=== PATIENT | female | born 1970 | race Caucasian/White ===

== ENCOUNTER → 2016-10-14 15:52 | Outpatient (CLI) | payer BC ==
[2016-04-21 06:44] VITALS: BMI 23.6
[~2016-10-14 15:52] MED LIST: DUEXIS 800-26.1 EACH PO; HYDROCODONE-APA1 TAB PO; VALIUM5 MG PO
== END | disposition home or self-care (01) ==
LOC: D.MAMMO 08:30
DX: N63 Unspecified lump in breast (principal)

== ENCOUNTER 2016-10-19 12:02 | Emergency (ER) | payer BC ==
[2016-04-21 06:44] VITALS: BMI 23.6
== END 2016-10-19 14:35 | disposition home or self-care (01) ==
LOC: D.ER 12:02
DX: S16.1XXA Strain of muscle, fascia and tendon at neck level, initial encounter (principal); V43.52XA Car driver injured in collision with other type car in traffic accident, initial encounter; Y93.89 Activity, other specified; Y92.410 Unspecified street and highway as the place of occurrence of the external cause; M50.30 Other cervical disc degeneration, unspecified cervical region; F17.200 Nicotine dependence, unspecified, uncomplicated

== ENCOUNTER 2016-12-30 09:53 | Outpatient (CLI) | payer BC ==
[2016-04-21 06:44] VITALS: BMI 23.6
--- NOTE | ~2016-12-30 | HEMODYNAMI ---
PATIENT:MACHO MELENDEZ MEDICAL RECORD: [id number] : 68 LOCATION:[facility] ADMISSION DATE: 12/30/16 Generatedon:12/30/201614:14 Patient name: MACHO MELENDEZ Patient #: [id number] SSN: : 1970 Date of study: 12/30/2016 Page: Of Hemodynamic Procedure Report Patient Data Patient Demographics Procedure consent was obtained First Name: MACHO Gender: Female Last Name: NORA : 1970 Middle Initial: ENMANUEL Age: 46 year(s) Patient #: [id number] Race: Additional ID: [id number] Contact details Address: [address] [place] [address] State: [place] City: [facility] Zip code: [address] Past Medical History Allergies Allergen Reaction Date Comments Reported Penicillins 12/30/2016 Sulfa drugs 12/30/2016 Admission Admission Data Admission Date: 12/30/2016 Admission Time: 9:53 Admit Source: Emergency department Height (in.): 25.59 BSA: 0.86 (m2) Height (cm.): 65 BMI: 150.3 (kg/m2) Weight (lbs.): 140 Weight (kg.): 63.5 Lab Results Lab Result Date: 12/30/2016 Lab Result Time: 0:00 Biochemistry Name Units Result Min Max BUN mg/dl 14 --(--*-)-- 7 18 Creatinine mg/dl 0.8 --(-*--)-- 0.6 1.3 Troponin I ng/ml 0.017 --(-*--)-- 0 0.06 Troponin l ng/ml 0 --(*---)-- 0 0.06 CBC Name Units Result Min Max Hemoglobin g/dl 13.1 -*(----)-- 13.5 17.5 Procedure Procedure Types Cath Procedure Diagnostic Procedure LHC LHC w/Coronaries Miscellaneous Procedures Procedure Description Procedure Date Procedure Date: 12/30/2016 Procedure Start Time: 14:01 Procedure End Time: 14:13 Procedure Staff Name Function Juarez Deng MD Performing Physician Jessica Gutierrez RT Scrub Franca Franklin RN Nurse Constantino Collado RT Monitor Procedure Data Cath Procedure Fluoroscopy Diagnostic fluoroscopy Total fluoroscopy Time: 1.4 time: 1.4 min min Diagnostic fluoroscopy Total fluoroscopy dose: 208 dose: 208 mGy mGy Contrast Material Contrast Material Type Amount (ml) Isovue 300 44 Entry Location Entry Primary Successful Side Size Upsize Upsize Entry Closure Chowdary ccessful Closure Location (Fr) 1 (Fr) 2 (Fr) Remarks Device Remarks Radial Right 6 Fr Mechanical artery Short Compression Estimated blood loss: 10 ml Diagnostic catheters Device Type Used For End Catheter Placement Diagnostic Terumo 5Fr Procedure Philomath 110cm catheter Procedure Medications Medication Administration Route Dosage Oxygen NC 2 l/min Lidocaine 2% added to field 20 Heparin Flush Bag added to field 2 bags (1000units/500ml NS) 0.9% NaCl I.V. 100 ml/hr Radial Cocktail added to field 1 syringe (Verapomil 2mg/Nitro 400mcg/Heparin 1500units) Versed I.V. 2 mg Fentanyl I.V. 50 mcg Versed I.V. 1 mg Fentanyl I.V. 50 mcg Versed I.V. 2 mg Fentanyl I.V. 50 mcg Radial Cocktail I.A. 1 syringe (Verapomil 2mg/Nitro 400mcg/Heparin 1500units) Versed I.V. 1 mg Fentanyl I.V. 50 mcg Versed I.V. 1 mg Hemodynamics Rest BSA: 0.86 (m2) HGB: 13.1 (g/dl) O2 Consumption: Estimated: 82.67 (ml/min) O2 Con sumption indexed: Estimated:96.13 (ml/min/m) Heart Rate: 63 (bpm) Pressure Samples Time Site Value (mmHg) Purpose Heart Use Rate(bpm) 14:03 LV 339/157,239 Snapshot 69 Snapshots Pre Cath Intra NCS Post Cath Vital Signs Time Heart Resp SPO2 etCO2 [id number] NIBP Rhythm Pain Sedation Rate (ipm) (%) (mmHg) (mmHg) (mmHg) Status Level (bpm) 13:34:14 59 12 100 0 0 123/73(91) NSR 0 (11) 10(A) , No pain 13:38:24 62 15 100 0 0 123/75(92) NSR 0 (11) 10(A) , No pain 13:42:36 62 10 99 0 0 116/70(86) NSR 0 (11) 10(A) , No pain 13:46:46 68 16 99 0 0 116/64(87) NSR 0 (11) 10(A) , No pain 13:50:58 66 18 97 0 0 114/59(83) NSR 0 (11) 10(A) , No pain 13:55:06 61 19 97 0 0 115/68(91) NSR 0 (11) 10(A) , No pain 13:59:16 60 19 97 0 0 116/63(88) NSR 0 (11) 9(A) , No pain 14:03:19 63 13 100 0 0 118/81(99) NSR 0 (11) 9(A) , No pain 14:07:33 70 13 97 0 0 97/53(72) NSR 0 (11) 9(A) , No pain 14:11:41 62 16 94 0 0 94/50(68) NSR 0 (11) 10(A) , No pain 14:13:07 63 8 94 0 0 96/50(68) NSR 0 (11) 10(A) , No pain Medications Time Medication Route Dose Verified Delivered Reason Notes E ffectiveness by by 13:33:27 Oxygen NC 2 l/min Franca Franca used for Noemi Noemi canine service teacher RN 13:33:38 Lidocaine 2% added 20ml Franca Franca used for to vial Noemi Noemi procedure field RN RN 13:33:48 Heparin Flush added 2 bags Franca Franca used for Bag to Noemi Noemi procedure (1000units/500ml field RN RN NS) 13:34:00 0.9% NaCl I.V. 100ml/hr Franca Franca used for Noemi Noemi canine service teacher RN 13:42:25 Radial Cocktail added 1 Franca Franca used for (Verapomil to syringe Noemi Noemi procedure 2mg/Nitro field RN RN 400mcg/Heparin 1500units) 13:54:20 Versed I.V. 2 mg Franca Franca for Noemi Noemi sedation RN RN 13:54:29 Fentanyl I.V. 50 mcg Franca Franca for Noemi Noemi sedation RN RN 13:57:14 Versed I.V. 1 mg Franca Franca for Noemi Noemi sedation RN RN 13:57:18 Fentanyl I.V. 50 mcg Franca Franca for Noemi Noemi sedation RN RN 14:01:45 Versed I.V. 2 mg Franca Franca for Noemi Noemi sedation RN RN 14:01:49 Fentanyl I.V. 50 mcg Franca Franca for Noemi Noemi sedation RN RN 14:02:47 Radial Cocktail I.A. 1 Juarez Pizarro used for (Verapomil syringe Sowmya Deng MD procedure 2mg/Nitro 400mcg/Heparin 1500units) 14:04:31 Versed I.V. 1 mg Juarez Pizarro for Sowmya Deng MD sedation 14:04:36 Fentanyl I.V. 50 mcg Juarez Pizarro for Sowmya Deng MD sedation 14:07:28 Versed I.V. 1 mg Franca Franca for Noemi Noemi sedation RN sales representative metals Log Time Note 13:02:35 Procedure type changed to Cath procedure, Diagnostic procedure, LHC, LHC w/Coronaries, Miscellaneous Procedures 13:02:59 Diagnostic Cath Status : Elective 13:03:10 Jessica Gutierrez RT(R) sent for patient. Start room use. 13:03:12 Time tracking: Regular hours 13:03:17 Plan of Care:Hemodynamics will remain stable., Cardiac rhythm will remain stable., Comfort level will be maintained., Respiratory function will remain adequate., Patient/ family verbilizes understanding of procedure., Procedure tolerated without complication., Recovers from procedure without complications.. 13:33:11 Vital chart was started 13:33:27 Oxygen 2 l/min NC was administered by Franca Franklin RN; used for procedure; 13:33:38 Lidocaine 2% 20ml vial added to field was administered by Franca Franklin RN; used for procedure; 13:33:48 Heparin Flush Bag (1000units/500ml NS) 2 bags added to field was administered by Franca Franklin RN; used for procedure; 13:34:00 0.9% NaCl 100ml/hr I.V. was administered by Franca Franklin RN; used for procedure; 13:37:26 Patient received from ED to CCL 1 Alert and oriented. Tansferred to table in Supine position. 13:37:28 Warm blankets applied, and prabha hugger turned on for patient comfort. 13:37:28 Correct patient and procedure confirmed by team. 13:37:29 ECG and BP/O2 sat monitors applied to patient. 13:37:30 Baseline sample Acquired. 13:37:46 Baseline sample Acquired. 13:37:49 Rhythm: sinus rhythm 13:37:58 H&P Date Dictated: 12/30/2016 ER History on chart.. 13:39:44 Full Disclosure recording started 13:39:48 Pre-procedure instructions explained to patient. 13:39:49 Pre-op teaching completed and patient verbalized understanding. 13:39:52 Family in waiting room. 13:40:05 Patient NPO since Breakfast. 13:40:19 Patient allergic to Penicillins 13:40:24 Patient allergic to Sulfa drugs 13:40:36 Is the patient allergic to Iodine/contrast media? No. 13:40:42 Is patient on blood thinner?No 13:40:44 Patient diabetic? No. 13:42:25 Radial Cocktail (Verapomil 2mg/Nitro 400mcg/Heparin 1500units) 1 syringe added to field was administered by Franca Franklin RN; used for procedure; 13:42:32 ----Pre-sedation anethsthesia assessment.---- 13:42:36 Previous problem with sedation/anesthesia? No ? 13:42:39 Snore? No 13:42:40 Sleep apnea? No 13:42:42 Deviated septum? No 13:42:42 Opens mouth fully? Yes 13:42:44 Sticks out tongue? Yes 13:42:48 Airway obstruction? No ? 13:42:53 Dentures? No ? 13:42:57 Pre procedure: right dorsailis pedis pulse 2+ Normal; easily identifiable; not easily obliterated 13:43:01 Modified Lester's test Ulnar < 7 seconds 13:43:14 IV patent on arrival in left antecubital with 0.9% NaCl at [facility]. 13:46:09 Lab Result : BUN 14 mg/dl 13:46:09 Lab Result : Troponin l 0 ng/ml 13:46:09 Lab Result : Creatinine 0.8 mg/dl 13:46:09 Lab Result : Troponin T 0.017 ng/ml 13:46:09 Lab Result : Hemoglobin 13.1 g/dl 13:46:14 Lab results completed and on chart. 13:46:20 Right Radial & Right Groin area was prepped with chlora-prep and draped in sterile fashion 13:46:21 Alarms reviewed by R. N. 13:46:22 Sharps counted by scrub and verified by R.N. 13:46:28 Admit Source: Emergency department 13:46:40 Patient Height : 25.59 cm 13:46:54 Patient Weight : 140 kg 13:47:00 Informed consent obtained and on chart 13:51:00 HCG/Urine : pending 13:53:39 Physician arrived 13:53:40 --------ALL STOP TIME OUT------ 13:53:42 Final Timeout: patient, procedure, and site verified with staff and physician. All members of the team are in agreement. 13:53:52 Right Radial & Right Groin site verified by team. 13:53:56 Physical assessment completed. ASA score P 2 - A patient with mild systemic disease as per Juarez Deng MD. 13:54:01 Sedation plan: IV Moderate Sedation Versed, Fentanyl 13:54:20 Versed 2 mg I.V. was administered by Franca Franklin RN; for sedation; 13:54:29 Fentanyl 50 mcg I.V. was administered by Franca Franklin RN; for sedation; 13:55:49 Use device set Radial Dx 13:55:51 Acist Syringe opened to sterile field. 13:55:52 Medline Cath Pack opened to sterile field. 13:55:53 Bag Decanter opened to sterile field. 13:55:53 Terumo 6Fr Slender Glidesheath opened to sterile field. 13:55:54 St Sanya 260cm J .035 wire opened to sterile field. 13:55:55 Acist Hand Control opened to sterile field. 13:55:55 Acist Manifold opened to sterile field. 13:55:56 Tegaderm 4 x 4 opened to sterile field. 13:55:57 MBrace Wrist Support opened to sterile field. 13:56:38 HCG/Urine : completed and on chart, negative 13:57:14 Versed 1 mg I.V. was administered by Franca Franklin RN; for sedation; 13:57:18 Fentanyl 50 mcg I.V. was administered by Franca Franklin RN; for sedation; 14:00:26 Procedure started. 14:01:03 Local anesthetic to right radial artery with Lidocaine 2% by Juarez Deng MD.INITIAL ACCESS ONLY 14:01:45 Versed 2 mg I.V. was administered by Franca Franklin RN; for sedation; 14::49 Fentanyl 50 mcg I.V. was administered by Franca Franklin RN; for sedation; 14:: A 6 Fr Short sheath was inserted into the Right Radial artery 14:02:42 A Diagnostic aCommerceumo 5Fr Philomath 110cm catheter was advanced over the wire and used for Procedure. 14:02:47 Radial Cocktail (Verapomil 2mg/Nitro 400mcg/Heparin 1500units) 1 syringe I.A. was administered by Juarez Deng MD; used for procedure; 14:03:43 Zero performed for pressure channel P1 14:04:01 LV hemodynamics recorded. 14:04:03 LV gram done using SALAS 14:04:10 EF : 60 % 14:04:20 LCA angiography performed. 14:04:31 Versed 1 mg I.V. was administered by Juarez Deng MD; for sedation; 14:04:36 Fentanyl 50 mcg I.V. was administered by Juarez Deng MD; for sedation; 14:06:01 RCA angiography performed. 14:06:07 Catheter removed. 14:06:47 Terumo TR Band Standard opened to sterile field. 14:07:16 Sheath removed intact; hemostasis achieved with Mechanical Compression to the Right Radial artery. 14:07:26 Procedure ended.(Physican Out) 14:07:28 Versed 1 mg I.V. was administered by Franca Franklin RN; for sedation; 14::38 Fluoroscopy time 01.40 minutes. 14::44 Fluoroscopy dose: 208 mGy 14::44 Flurop Dose total: 208 14:07:58 Contrast amount:Isovue 300 44ml. 14:08:00 Sharps counted by scrub and verified by R.N. 14:10:18 TR band inflated with 10cc of air. 14:10:20 Insertion/operative site no bleeding no hematoma. 14:10:29 Post right radial artery:stable 14:10:31 Post Procedure Pulses reassessed and unchanged 14:10:35 Post-procedure physical assessment completed. ASA score P 2 - A patient with mild systemic disease as per Juarez Deng MD. 14:10:40 Post procedure rhythm: sinus rhythm 14:10:44 Estimated blood loss: 10 ml 14:10:46 Post procedure instruction explained to patient.Patient verbalizes understanding. 14:10:49 Patient needs reinforcement of post procedure teaching. 14:10:51 Procedure and supply charges have been captured, reviewed, submitted and are correct. 14:13:33 Vital chart was stopped 14:13:34 See physician's report for complete and final results. 14:13:37 Report given to Pre/Post Procedure Room. 14:13:44 Patient transfered to Pre/Post Procedure Room with Stretcher. 14:13:46 Procedure ended. 14:13:46 Full Disclosure recording stopped 14:13:54 End room use (Document Last) Device Usage Item Name Manufacture Quantity Catalog Hospital Part Current Minimal Lot# / Number Charge Number Stock Stock Serial# Code Acist Acist 1 [id number] [id number] 20 Syringe [employer] Inc Medline Cardinal 1 [id number] 160475 01093 139913 5 Cath Pack Health Bag Microtek 1 [id number] [id number] 40006 [id number] 5 [employer] Terumo 6Fr Terumo 1 [id number] 346404 988807 924908 [address] St Sanya 1 149898 737368 451993 286177 30 260cm J .035 wire Acist Hand Acist 1 30470 629688 094981 208775 5 Control [employer] Inc Acist Acist 1 34933 414033 019048 346486 5 Manifold [employer] Inc Tegaderm 4 3M 1 [id number] [id number] 407155 286157 5 x 4 MBrace Advanced 1 140-0250-00 074049 71158 271132 5 Wrist Vascular Support Dynamics Diagnostic Terumo 1 40-1721 894753 530880 171930 5 Terumo 5Fr Philomath 110cm catheter Terumo TR Terumo 1 [id number] [id number] 118908 40 Band Standard Signature Audit [place] Stage Time Signature Unsigned Intra-Procedure 12/30/2016 Constantino Collado 2:14:25 PM RT(R) (CV) Signatures Monitor : Constantino Collado RT Signature : Date : Time : [address] [address]
--- NOTE | ~2016-12-30 | PRO ---
PATIENT:MACHO MELENDEZ MEDICAL RECORD: [id number] : 68 LOCATION:[facility] ADMISSION DATE: 12/30/16 PROCEDURE PERFORMED BY: SERGIO HANNAH MD PROCEDURES: 1. Left heart catheterization. 2. Selective coronary angiography. 3. Left ventriculogram. INDICATION: Chest pain compatible with angina. PROCEDURE IN DETAIL: After informed consent was obtained and after detailed explanation of risks, benefits, as well as alternative therapies, the patient elected to proceed with angiogram. The right radial area was prepped and draped in a normal sterile fashion. The right radial artery was cannulated via modified Seldinger technique with placement of 5-Mohawk sheath. All catheters exchanged through this sheath. FINDINGS: Left ventriculogram was performed in standard 30 degree SALAS view, reveals good cardiac wall motion throughout all segments. Overall ejection fraction 55-60%. SELECTIVE CORONARY ANGIOGRAPHY: 1. Left main, left anterior descending, left circumflex, right coronary artery are all smooth walled vessels with no angiographic evidence of coronary artery disease. OVERALL IMPRESSION: 1. No angiographic evidence of coronary artery disease. 2. Normal left heart pressures. 3. Normal left ventricular systolic function. 4. Chest pain is noncardiac in etiology and no further cardiac workup needs to be ascertained. SERGIO HANNAH MD CC: [id number] DICTATION DATE: 12/30/161204 LACEWORKER: TC 12/31/16 120 DEP CLI 12/30/[address] [facility] [address] [place] [address]
[2016-12-30 11:08] LABS: BASOPHILS 0.3 % (0-2); EOSINOPHILS 1.1 % (0-7); HEMATOCRIT 37.9 % (36.0-48.0); HEMOGLOBIN 13.1 g/dL (12-16); IMMATURE GRANULOCYTES 0.3 % (0-5); LYMPHOCYTES 28.7 % (15-50); MCH 30.8 pg (26.0-34.0); MCHC 34.6 g/dL (31.0-37.0); MEAN PLATELET VOLUME 10.1 fL (7.4-10.4); MONOCYTES 6.5 % (2-11); NEUTROPHILS 63.1 % (40-80); RBC 4.26 10x6/uL (4.00-5.40); WBC 6.6 10x3/uL (4.8-10.8)
[2016-12-30 11:26] LABS: PLATELET COUNT 205 10x3/uL (130-400)
[2016-12-30 11:39] LABS: ALBUMIN 3.6 g/dL (3.4-5.0); ALKALINE PHOSPHATASE 54 U/L (46-116); ALT (SGPT) 21 U/L (10-68); CALC OSMOLALITY 274 mosm/kg (275-300); CHLORIDE - SERUM 102 mmol/L (98-107); CREATININE - SERUM 0.8 mg/dL (0.6-1.3); GLUCOSE 95 mg/dL (74-106); PROTEIN - SERUM 6.8 g/dL (6.4-8.2); SODIUM 137 mmol/L (136-145); UREA NITROGEN 14 mg/dL (7-18); eGFR NON AFRICAN AMERICAN 81 mL/min (90-120)
[2016-12-30 11:52] LABS: CKMB 0.4 U/L (0.0-3.6); CREATINE KINASE 63 UL (21-215); PRO BNP 219 pg/mL (0-125); TROPONIN-I < 0.017 ng/mL (0.000-0.060)
[2016-12-30 13:48] LABS: HCG URINE NEGATIVE (NEGATIVE)
[2016-12-30 13:48] LABS: APPEARANCE CLEAR (CLEAR); BILIRUBIN NEGATIVE (NEGATIVE); COLOR YELLOW (YELLOW); GLUCOSE NEGATIVE (NEGATIVE); KETONE NEGATIVE (NEGATIVE); LEUKOCYTE ESTERASE NEGATIVE (NEGATIVE); NITRITE NEGATIVE (NEGATIVE); PROTEIN NEGATIVE (NEGATIVE); UROBILINOGEN NORMAL (NORMAL)
--- NOTE | 2016-12-30 15:20 | NUR ---
1440 SITTING UP IN BED TALKING WITH FAMILY. ROOM AIR WITH NO DISTRESS. NSR RATE 63 WNO C/O CHEST PAIN. PULSES PALP X 4. R WRIST TR BAND C/D/I WITH NO HEMATOMA OR BLEEDING. 1510 R WRIST TR BAND C/D/I. VITALS WNL. FAMILY AT SIDE. EATING/DRINKING WITH NO NAUSEA.
--- NOTE | 2016-12-30 16:49 | NUR ---
1600 UP FROM BED, AMBULATED TO BATHROOM. BACK TO BEDSIDE. 3CC AIR REMOVED FROM R WRIST TR BAND. UP TO BEDSIDE TO DRESS WITH ASSIST FROM FAMILY. 1625 R WRIST TR BAND REMOVED WITH TEGADERM AND 2X2 APPLIED. BRACE RE-APPLIED TO WRIST. D/C INSTRUCTIONS DISCUSSED WITH PATIENT. WHEELED OUT VIA WHEELCHAIR.
== END 2016-12-30 17:00 | disposition home or self-care (01) ==
LOC: D.ER 09:53 → D.CATH 09:53
PROVIDERS: Internal Medicine Interventional Cardiology; Physician Assistant
DX: R07.89 Other chest pain (principal); Z01.812 Encounter for preprocedural laboratory examination

== ENCOUNTER → 2019-09-16 18:48 | Outpatient (CLI) | payer OTHER ==
[2016-04-21 06:44] VITALS: BMI 23.6
== END | disposition home or self-care (01) ==
LOC: D.MAMMO 15:00
PROVIDERS: ATTEND Nurse Practitioner Family
DX: Z12.31 Encounter for screening mammogram for malignant neoplasm of breast (principal)